=== PATIENT | female | born 1970 | race African-American/Black ===

== ENCOUNTER → 2016-12-20 | Outpatient (CLI) | payer OTHER ==
[~2016-12-20] MED LIST: ALLEGRA180 MG PO; ANTIVERT PO; FLEXERIL PO; FLEXERIL10 MG PO; IRON; IRON1 TA1; IRON1 TAB; MEDROL DOSEPAK4 MG PO; NAPROSYN500 MG PO; NAPROXEN PO; PERCOCET PO
--- NOTE | ~2016-12-20 | US5 ---
[facility] A Service of [facility] RADIOLOGY TEXT RESULTS PATIENT: SOTERO HERNÁNDEZ V LOCATION: [facility] : 66 UNIT #: [id number] AGE: [address]: Lacey Clemens APRN SEX: F ORDER DR: [id number] [facility] [address] [facility]. [place], [place] [address] [id number] O MR#: [id number] #: [id number] NAME: SOTERO HERNÁNDEZ V. : 1970 SEX: F STUDY DATE/TIME: 12/20/2016 8:41 UNIT: [facility] ROOM: STUDY DESCRIPTION: US Abdominal Complete Attending Physician: Lacey Clemens Aprn Referring Physician: Trinidad Liz M.D. Ordering Physician: Lacey Clemens Aprn Primary Care Physician: Trinidad Liz M.D. MEDICAL IMAGING REPORT This report is preliminary unless electronic signature is present EXAM Complete abdominal ultrasound, 12/20/2016 HISTORY Right upper quadrant abdominal pain, sharp postprandial pain; symptoms present for 3 weeks. Previous cholecystectomy. COMPARISON CT chest 08/08/2010. No dedicated abdominal imaging at this institution for comparison. FINDINGS The pancreatic tail is partially obscured by bowel gas, but the visualized pancreas appears normal. Common bile duct caliber measures 7 mm, which is not unexpected status post cholecystectomy. No intrahepatic biliary ductal dilation is seen. Liver size is within normal limits, measuring about 13.5 cm in long axis. No focal liver lesions are identified. The liver demonstrates normal homogeneous echotexture. No ascites is seen. Intrahepatic IVC has an unremarkable burkett-scale appearance. Right kidney measures 9.4 cm in length without focal cortical lesion, shadowing stone or hydronephrosis. Abdominal aorta is of normal caliber, without aneurysm, and demonstrates normal color flow. The left kidney measures 9.9 cm in length without focal cortical lesion, shadowing stone or hydronephrosis. Spleen size is within normal limits, 18.2 cm in length. IMPRESSION 1. Normal complete abdominal ultrasound. 2. Pancreatic tail is partially obscured by bowel gas. 3. Cholecystectomy. Dictated by... [facility]. [facility] A Service of [facility] RADIOLOGY TEXT RESULTS PATIENT: SOTERO HERNÁNDEZ V LOCATION: [facility] : 66 UNIT #: [id number] AGE: [address]: Lacey Clemens APRN SEX: F ORDER DR: Velvet Hernandez M.D. THIS IS AN ELECTRONICALLY VERIFIED REPORT Velvet Hernandez M.D. at 12/21/2016 8:46 AM Morris TD: 12/20/2016 13:12 JOB #: [id number] MEDICAL IMAGING REPORT Page 1 of 1 COPY
== END | disposition home or self-care (01) ==
LOC: CWCC 08:27
DX: R10.9 Unspecified abdominal pain (principal); R10.2 Pelvic and perineal pain; Z90.49 Acquired absence of other specified parts of digestive tract
CPT/HCPCS: 76700